=== PATIENT | female | born 1950 | race Caucasian/White ===

== ENCOUNTER 2016-06-28 22:43 | Observation (INO) | payer MEDICARE, OTHER ==
[~2016-06-28] VITALS: Ht 165.1 cm; Wt 86.2 kg
[2016-06-28 23:01] LABS: BASO # 0.1 x10^3/uL (0.0-0.2); BASO % 1 % (0-3); EOS % 1 % (0-3); HEMATOCRIT 41.7 % (36.0-47.0); HEMOGLOBIN 13.9 g/dL (12.0-15.5); LYMPH # 2.1 x10^3/uL (1.0-4.8); LYMPH % 21 % (24-48); MEAN CORPUSCULAR HEMOGLOBIN 33 pg (25-35); MEAN CORPUSCULAR HGB CONC 33 g/dL (31-37); MEAN CORPUSCULAR VOLUME 100 fL (79-100); MONO % 8 % (0-9); NEUT % 69 % (31-73); PLATELET COUNT 341 x10^3/uL (140-400); RED BLOOD COUNT 4.19 x10^6/uL (3.50-5.40); RED CELL DISTRIBUTION WIDTH 12.8 % (11.5-14.5); WHITE BLOOD COUNT 10.1 x10^3/uL (4.0-11.0)
[2016-06-28 23:11] LABS: CALCIUM 9.9 mg/dL (8.5-10.1); CREATININE 0.9 mg/dL (0.6-1.0); GFR 62.5; POTASSIUM 4.5 mmol/L (3.5-5.1)
--- NOTE | 2016-06-28 23:54 | PHYS DOC ---
Past Medical History Past Medical History: High Cholesterol, Hypertension Past Surgical History: , Hip Replacement, Tonsillectomy, Tubal ligation, Other Additional Past Surgical Histo: back sx, hand sx Alcohol Use: Occasionally Drug Use: None Adult General Chief Complaint Chief Complaint: CHEST PAIN HPI HPI 66-year-old female states she's had a week long history of left-sided chest pain. She states there are no concerning factors that can describe why she is having pain. She does believe she was lifting some boxes several days prior to the pain episode but states that that arm movement or breathing does not make the pain worse. She denies any shortness of breath. She states her last stress test approximately 5 years ago. Patient does state she has history of hypertension and takes medications for it. She is a nonsmoker and denies any other significant past medical history. Currently she rates her pain a 3 out of 10 and is in no acute distress. Review of Systems Review of Systems Constitutional: Denies fever or chills [] Eyes: Denies change in visual acuity, redness, or eye pain [] HENT: Denies nasal congestion or sore throat [] Respiratory: Denies cough or shortness of breath [] Cardiovascular: No additional information not addressed in HPI [] GI: Denies abdominal pain, nausea, vomiting, bloody stools or diarrhea [] : Denies dysuria or hematuria [] Musculoskeletal: Denies back pain or joint pain [] Integument: Denies rash or skin lesions [] Neurologic: Denies headache, focal weakness or sensory changes [] Endocrine: Denies polyuria or polydipsia [] Allergies Allergies Allergies Coded Allergies Type Severity Reaction Last Updated Verified No Known Drug Allergies 06/28/16 No Physical Exam Physical Exam Constitutional: Well developed, well nourished, no acute distress, non-toxic appearance. [] HENT: Normocephalic, atraumatic, bilateral external ears normal, oropharynx moist, no oral exudates, nose normal. [] Eyes: PERRLA, EOMI, conjunctiva normal, no discharge. [] Neck: Normal range of motion, no tenderness, supple, no stridor. [] Cardiovascular:Heart rate regular rhythm, no murmur [] Lungs & Thorax: Bilateral breath sounds clear to auscultation [] Abdomen: Bowel sounds normal, soft, no tenderness, no masses, no pulsatile masses. [] Skin: Warm, dry, no erythema, no rash. [] Back: No tenderness, no CVA tenderness. [] Extremities: No tenderness, no cyanosis, no clubbing, ROM intact, no edema. [] Neurologic: Alert and oriented X 3, normal motor function, normal sensory function, no focal deficits noted. [] Psychologic: Affect normal, judgement normal, mood normal. [] Current Patient Data Vital Signs Vital Signs Date Time Temp Pulse Resp B/P Pulse Ox O2 Delivery O2 Flow Rate FiO2 06/28/16 22:54 97.3 79 18 163/79 97 Room Air 97.3 Lab Values Laboratory Tests Test 06/28/16 22:54 White Blood Count 10.1x10^3/uL (4.0-11.0) Red Blood Count 4.19x10^6/uL (3.50-5.40) Hemoglobin 13.9g/dL (12.0-15.5) Hematocrit 41.7% (36.0-47.0) Mean Corpuscular Volume 100fL (79-100) Mean Corpuscular Hemoglobin 33pg (25-35) Mean Corpuscular Hemoglobin Concent 33g/dL (31-37) Red Cell Distribution Width 12.8% (11.5-14.5) Platelet Count 341x10^3/uL (140-400) Neutrophils (%) (Auto) 69% (31-73) Lymphocytes (%) (Auto) 21% (24-48) L Monocytes (%) (Auto) 8% (0-9) Eosinophils (%) (Auto) 1% (0-3) Basophils (%) (Auto) 1% (0-3) Neutrophils # (Auto) 7.0x10^3uL (1.8-7.7) Lymphocytes # (Auto) 2.1x10^3/uL (1.0-4.8) Monocytes # (Auto) 0.8x10^3/uL (0.0-1.1) Eosinophils # (Auto) 0.1x10^3/uL (0.0-0.7) Basophils # (Auto) 0.1x10^3/uL (0.0-0.2) Sodium Level 143mmol/L (136-145) Potassium Level 4.5mmol/L (3.5-5.1) Chloride Level 105mmol/L (98-107) Carbon Dioxide Level 31mmol/L (21-32) Anion Gap 7 (6-14) Blood Urea Nitrogen 26mg/dL (7-20) H Creatinine 0.9mg/dL (0.6-1.0) Estimated GFR (Cockcroft-Gault) 62.5 Glucose Level 121mg/dL (70-99) H Calcium Level 9.9mg/dL (8.5-10.1) Troponin I Quantitative < 0.017ng/mL (0.000-0.055) Laboratory Tests 06/28/16 22:54 Laboratory Tests 06/28/16 22:54 EKG EKG EKG as interpreted by me shows a sinus rhythm with rate of 68 bpm. There are no obvious signs of ischemia on this EKG. Intervals are normal. This EKG does not meet STEMI criteria. Radiology/Procedures Radiology/Procedures One view of the chest as interpreted by me does not reveal an acute cardiopulmonary process. Course & Med Decision Making Course & Med Decision Making Pertinent Labs and Imaging studies reviewed. (See chart for details) 66-year-old female who's having continued mild upper chest pain had a workup is essentially unremarkable. Pain seems fairly atypical for viscous skeletal pain and it is not reproducible my exam. For this reason, I will be admitting her to the hospital for further observation for her chest pain area I'll discuss the need for admission with the hospitalist, Dr. Whaley, and a cardiology consult will be placed. Dragon Disclaimer Dragon Disclaimer This electronic medical record was generated, in whole or in part, using a voice recognition dictation system. Departure Departure Impression: Primary Impression: Chest pain Disposition: 09 ADMITTED INPATIENT Admitting Physician: Other Condition: STABLE Referrals: MONISHA JASSO (PCP) YANET FLORES DO Jun 28, 2016 23:53
--- NOTE | 2016-06-29 00:31 | ACF ---
Admission Forms Criteria CHEST PAIN Clinical Indications for Admission to Inpatient Care (Place 'X' for any and all applicable criteria): Admission is indicated for chest pain and ANY ONE of the following(1)(2)(3)(4)(5 ): [ ]I. Angina with acute coronary syndrome (Also use Myocardial Infarction or Angina guideline) [ ]II. Hemodynamic instability [ ]III. Angina needing acute intervention as indicated by ALL of the following( 11)(12): [ ]a) Unstable angina is present as indicated by angina that is ANY ONE of the following: [ ]i) New onset [ ]ii) Nocturnal [ ]iii) Prolonged at rest [ ]iv) Progressive [ ]b) Angina warrants acute intervention as indicated by ANY ONE of the following: [ ]i) Recurrent angina (e.g, not responding as previously to treatment) [ ]ii) Angina at rest or with low-level activities despite initial medical therapy [ ]iii) New or presumably new ST-segment depression on ECG [ ]iv) Signs or symptoms of heart failure (eg, dyspnea, pulmonary edema) [ ]v) New or worsening mitral regurgitation [ ]vi) Hemodynamic instability [ ]vii) Dangerous arrhythmia (eg, sustained ventricular tachycardia) [ ]viii) History of percutaneous coronary intervention within 6 months [ ]ix) History of coronary artery bypass graft surgery [ ]x) SUZANNE risk score of 2 or greater[A] [ ]xi) History of Diabetes(14) [ ]xii) High-risk cardiac ischemia findings on noninvasive testing (e.g, echocardiogram, treadmill testing, nuclear scan) [ ]xiii) Chronic renal insufficiency (ie, estimated GFR less than 60 mL/min/1.732m) [ ]xiv) Left ventricular ejection fraction less than 40% [ ]IV. Evidence of [place] (eg, cardiac biomarkers positive, ST-segment elevation on ECG) also use Myocardial Infarction Criteria Form. [ ]V. Pulmonary edema [ ]. Respiratory distress [ ]VII. Chest pain indicative of serious diagnosis other than coronary artery disease (eg, aortic dissection) [ ]VIII. Contraindications and/or Inappropriate clinical situations for Observational Care in patients with Chest Pain, when ANY ONE of the following is required: [ ]a) Patient with risk factor for pulmonary embolism, acute coronary syndrome and myocardial infarction (18) [ ]b) Patient with Pulmonary embolism require an average LOS of 4.3 days, therefore emergency department observation management is inappropriate 18,23 [ ]c) Painful condition/s in the elderly, have the highest rate of recidivism after emergency department observation management (10.8%) 20,21,22 [ ]d) Elevated cardiac biomarker requires intensive and exhaustive care (19) [X]IX. General contraindications and/or Inappropriate clinical situations for Observational Care in patients with Chest Pain, when ANY ONE of the following is required: [X]a) Prediction of prolongation of LOS based on ANY ONE of the following may be considered as a contraindication for observational care 2, 3, 4, 5, 6, 7, 8, 9, 10, 11 [X]i) Age > 65 yrs. [ ]ii) Patient arriving by ambulance [ ]iii) Patient with high acuity [ ]iv) Patient requiring vital sign monitoring [ ]v) Patient on IV medication [ ]b) Systolic blood pressures 180mmHg 3,12 [ ]c) Patient with altered mental status including delirium and other alteration of consciousness, (3) [ ]d) Patient whose discharge disposition will be to a long-term home or rehabilitation home should not be managed in Emergency Department Observation Unit. CMS rule requires 3 days hospital stay before such placement. 3,13 [ ]e) Patient with failure to thrive due to broad array of etiologies 3,16,17 [ ]f) Inability to ambulate 3,14 Extended stay beyond goal length of stay may be needed for (1)(28): [ ]a) Specific condition diagnosed after evaluation (eg, pulmonary embolism, aortic dissection) [ ]b) Unstable angina [ ]c) Continued suspicion of acute coronary syndrome with inability to complete needed cardiac evaluation (eg, patient clinically unable to undergo stress testing) [ ]d) Myocardial infarction (Contents from ANGINA and CHEST PAIN clinical indications for admission to inpatient care have been integrated in this form) The original [facility] content created by [employer] has been revised. The portions of the content which have been revised are identified through the use of italic text or in bold, and [facility] has neither reviewed nor approved the modified material. All other unmodified content is copyright [facility]. Please see references footnoted in the original [facility] edition 2016 Admission Criteria Met?: Yes ALEJANDRO LOPEZ Jun 29, 2016 00:31
[2016-06-29] MEDS ORDERED: NITROGLYCERIN SUBLINGUAL 0.4 MG BOTTLE OF 25. SL PRN (00:45)
[2016-06-29] MEDS ORDERED: TELM40TA4 PO (02:57)
[2016-06-29] MEDS ORDERED: SIMV40TA3 PO (02:57)
[2016-06-29] MEDS ORDERED: GABA-586 PO (02:57)
[2016-06-29] MEDS ORDERED: NAPR500T3 PO (02:57)
[2016-06-29 03:11] VITALS: BP 131/59
--- NOTE | 2016-06-29 06:22 | EKG ---
[facility] [address] [place] [address] Test Date: 2016-06-28 Test Time: 22:51:11 [facility] Department: Room: 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 MISSING LEAD V 4 OTHERWISE NORMAL EKG. Electronically Signed On 06-30-2016 21:48:28 CDT by Barb Romero
[2016-06-29 07:00] VITALS: BP 123/89
--- NOTE | 2016-06-29 07:53 | RAD ---
Portable chest, 06/28/2016: History: Chest pain Comparison is made to a study from 11/11/2010. The heart size and pulmonary vascularity are normal. No pulmonary infiltrates are seen. There is no evidence of pleural fluid. IMPRESSION: No acute cardiopulmonary abnormality is detected.
[2016-06-29 08:51] VITALS: BP 123/59
[2016-06-29] MEDS ORDERED: MULT-246 PO (09:13)
--- NOTE | 2016-06-29 10:10 | PDOC2 ---
COURTNEY RIVERA FINE [employer]S MODEL 06/29/16 1010: CARDIAC CONSULT DATE OF CONSULT Date of Consult DATE: 06/29/16 TIME: 10:06 REASON FOR CONSULT Reason for Consult: Chest Pain REFERRING PHYSICIAN Referring Physician: Dr. Schaeffer SOURCE Source: Chart review, Patient HISTORY OF PRESENT ILLNESS HISTORY OF PRESENT ILLNESS This is a 66 yo female who presented with complaints of chest pain. Patient reports moving boxes 06/18/16. Developed pain in the left chest couple of days later; has been lingering on. Reports pain as dull. Non-radiating. Seems to be relief/improved with belching. Worse after eating; feels like food is getting stuck. Generally is gone in the morning, but returns throughout the day. Walks daily on the treadmill for 20-30 mins; seems to improve pain. Last night, felt pain between her shoulder blades while cooking dinner. Has chronic lower-back pain. This was very different so she thought she should come in for evaluation. Denies any associated dizziness, diaphoresis, palpitations, SOA, STAPLETON, or nausea/ vomiting. Thinks this may be GERD related as she has had 30lb weight gain of the last 2 years due to decreased activity with chronic pain. Was recently started on gabapentin, which has significantly improved her pain. Has began to be more active in the last 6 weeks. Patient had breakfast with caffeine this am. PAST MEDICAL HISTORY Cardiovascular: HTN, Hyperlipidemia Pulmonary: No pertinent hx GI: No pertinent hx Heme/Onc: No pertinent hx Hepatobiliary: No pertinent hx Psych: No pertinent hx Musculoskeletal: Osteoarthritis Rheumatologic: No pertinent hx Infectious disease: No pertinent hx ENT: No pertinent hx Renal/: No pertinent hx Endocrine: No pertinent hx Dermatology: No pertinent hx PAST SURGICAL HISTORY Past Surgical History: Tubal Ligation, Tonsillectomy, Other (back sx, left hip sx, right hand sx) FAMILY HISTORY Family History: Hypertension SOCIAL HISTORY Smoke: No ALCOHOL: none Drugs: None Lives: with Family ALLERGIES ALLERGIES: Coded Allergies: No Known Drug Allergies (Unverified , 06/28/16) ROS Review of System 14 point ROS conducted with pertinent positives noted above in HPI PHYSICAL EXAM General: Alert, Oriented X3, Cooperative, No acute distress HEENT: Atraumatic, Mucous membr. moist/pink Lungs: Clear to auscultation, Normal air movement Heart: Regular rate, Normal S1, Normal S2 Abdomen: Soft, No tenderness Extremities: No edema, Normal pulses Skin: No significant lesion Neuro: Normal speech, Sensation intact Psych/Mental Status: Mental status NL, Mood NL MUSCULOSKELETAL: Osteoarthritic changes both hands VITALS VITALS Vital Signs Date Time Temp Pulse Resp B/P Pulse Ox O2 Delivery O2 Flow Rate FiO2 06/29/16 08:51 98.0 64 16 123/59 97 Room Air 98.0 LABS Lab: Laboratory Tests Test 06/28/16 22:54 06/29/16 05:40 White Blood Count 10.1x10^3/uL (4.0-11.0) Red Blood Count 4.19x10^6/uL (3.50-5.40) Hemoglobin 13.9g/dL (12.0-15.5) Hematocrit 41.7% (36.0-47.0) Mean Corpuscular Volume 100fL (79-100) Mean Corpuscular Hemoglobin 33pg (25-35) Mean Corpuscular Hemoglobin Concent 33g/dL (31-37) Red Cell Distribution Width 12.8% (11.5-14.5) Platelet Count 341x10^3/uL (140-400) Neutrophils (%) (Auto) 69% (31-73) Lymphocytes (%) (Auto) 21% (24-48) Monocytes (%) (Auto) 8% (0-9) Eosinophils (%) (Auto) 1% (0-3) Basophils (%) (Auto) 1% (0-3) Neutrophils # (Auto) 7.0x10^3uL (1.8-7.7) Lymphocytes # (Auto) 2.1x10^3/uL (1.0-4.8) Monocytes # (Auto) 0.8x10^3/uL (0.0-1.1) Eosinophils # (Auto) 0.1x10^3/uL (0.0-0.7) Basophils # (Auto) 0.1x10^3/uL (0.0-0.2) Sodium Level 143mmol/L (136-145) Potassium Level 4.5mmol/L (3.5-5.1) Chloride Level 105mmol/L (98-107) Carbon Dioxide Level 31mmol/L (21-32) Anion Gap 7 (6-14) Blood Urea Nitrogen 26mg/dL (7-20) Creatinine 0.9mg/dL (0.6-1.0) Estimated GFR (Cockcroft-Gault) 62.5 Glucose Level 121mg/dL (70-99) Calcium Level 9.9mg/dL (8.5-10.1) Troponin I Quantitative < 0.017ng/mL (0.000-0.055) < 0.017ng/mL (0.000-0.055) ASSESSMENT/PLAN ASSESSMENT/PLAN 1. Chest pain, atypical 2. Hypertension 3. Hyperlipidemia 4. ? GERD Recommendations Check lipids Enzymes negative- AMI ruled out Will obtain echo to assess LV function/ presence of WMA Pain possible GI related as it is affected by eating/belching. PPI Could consider outpatient MPI Problems: NIC HIDALGO MD 06/29/16 2233: CARDIAC CONSULT ALLERGIES ALLERGIES: Coded Allergies: No Known Drug Allergies (Unverified , 06/28/16) ASSESSMENT/PLAN ASSESSMENT/PLAN Pt. seen and examined. 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 66 y.o woman presenting with atypical chest pain normal cardiac exam. labs reviewed. echo wnl low risk for coronary disease based on presentation and testing ok to dc and will f/u on an outpt basis for eval. If she has any sx despite tx of GERD, then can pursue ischemic testing. Problems: COURTNEY RIVERA APRN Jun 29, 2016 10:10 NIC HIDALGO MD Jun 29, 2016 22:33
[2016-06-29 11:00] VITALS: BP 146/83
[2016-06-29 13:01] LABS: CHOLESTEROL/HDL RATIO 3.6
--- NOTE | 2016-06-29 17:17 | SSS ---
ADMIT DATE: 06/29/2016 CHIEF COMPLAINT: Shortness of breath. HISTORY OF PRESENT ILLNESS: The patient is a pleasant middle-aged white female who looks younger than her stated age. She is apparently 66, but looks to be in her 40s, she presents with chest pain. She has had an evaluation before for chest pain. She rates her symptoms 7/10, that has been coming on for a few days. She was admitted overnight for observation. At this point, she saw the nurse practitioner for Cardiology. They are planning to do an echo. If it is normal, they plan to discharge. We are going to have close outpatient followup for outpatient stress test. PAST MEDICAL HISTORY: Previous coronary workup, although apparently was negative, arthritis, neuropathy, hyperlipidemia, hypertension. ALLERGIES: None. FAMILY HISTORY: Coronary artery disease. SOCIAL HISTORY: She does not drink, smoke or take drugs. MEDICATIONS: Reviewed, please refer to the MRAD. REVIEW OF SYSTEMS: GENERAL: No history of weight change, weakness or fevers. SKIN: No bruising, hair changes or rashes. EYES: No blurred, double or loss of vision. NOSE AND THROAT: No history of nosebleeds, hoarseness or sore throat. HEART: No history of palpitations, chest pain or shortness of breath on exertion. LUNGS: Denies cough, hemoptysis, wheezing or shortness of breath. GASTROINTESTINAL: Denies changes in appetite, nausea, vomiting, diarrhea or constipation. GENITOURINARY: No history of frequency, urgency, hesitancy or nocturia. NEUROLOGIC: Denies history of numbness, tingling, tremor or weakness. PSYCHIATRIC: No history of panic, anxiety or depression. ENDOCRINE: No history of heat or cold intolerance, polyuria or polydipsia. EXTREMITIES: Denies muscle weakness, joint pain, pain on walking or stiffness. PHYSICAL EXAMINATION: VITAL SIGNS: Temperature afebrile, pulse 68, respirations 18, blood pressure 144/90. GENERAL: She is alert, cooperative, requesting discharge. HEART: Normal S1, S2. LUNGS: Clear. ABDOMEN: Soft. EXTREMITIES: No edema. SKIN: No rashes. PSYCHIATRIC: She is stable. LABORATORY DATA: Troponin is 0. EKG shows sinus rhythm. ASSESSMENT AND PLAN: Chest pain, suspect gastroesophageal reflux disease. The patient seems stable. If her echo is negative, we plan to discharge with outpatient stress. DISPOSITION: Home. ACTIVITY: As tolerated. DIET: Low sodium. MEDICATIONS: Please see the MRAD. Total time 32 minutes. ANGY PACK DO DR: SHANELL/maurilio JOB#: [id number] / [id number]
--- NOTE | 2016-06-29 19:28 | CARD ---
APPROVED REPORT EXAM: Two-dimensional and M-mode echocardiogram with Doppler and color Doppler. Other Information Quality : Average Rhythm : NSR INDICATION Chest Pain 2D DIMENSIONS RVDd2.9 (2.9-3.5cm)Left Atrium(2D)3.7 (1.6-4.0cm) IVSd1.0 (0.7-1.1cm)Aortic Root(2D)2.8 (2.0-3.7cm) LVDd4.6 (3.9-5.9cm)LVOT Diameter2.2 (1.8-2.4cm) PWd1.0 (0.7-1.1cm)LVDs2.8 (2.5-4.0cm) FS (%) 39.3 %SV69.3 ml LVEF(%)69.8 (>50%) Aortic Valve AoV Peak Phil.89.2cm/sAoV VTI19.0cm AO Peak GR.3.2mmHgLVOT Peak Phil.86.8cm/s LVOT VTI 26.99cmAO Mean GR.2mmHg MISTI (VMAX)3.63cm2 Mitral Valve MV E Enyeytlh19.4cm/sMV DECEL [id number] MV A Negaupzj78.1cm/sMV E Mean Gr.1mmHg MV LRV21nzV/A Ratio0.8 MV A [id number] (PHT)2.62cm2 TDI E/Lateral E'6.9E/Medial E'7.0 Pulmonary Valve PV Peak Nbdeioqa20.1cm/sPV Peak Grad.3mmHg RVOT VTI14.3cm Tricuspid Valve TR P. Jnmfjkri045qe/sRAP FIJTFLKL7uqRt TR Peak Gr.90ysTjVTOR04rkBd Pulmonary Vein S1 Idqclrvd32.7cm/sD2 Segawaxm70.8cm/s LEFT VENTRICLE The left ventricle is normal size. There is normal left ventricular wall thickness. Left ventricle sy stolic function is normal. The Ejection Fraction is 65-70%. There is normal LV segmental wall motion. Tissue Doppler imaging reveals mild left ventricular diastolic dysfunction. RIGHT VENTRICLE The right ventricle is normal size. The right ventricular systolic function is normal. ATRIA The left atrium size is normal. The right atrium size is normal. The interatrial septum is intact wit h no evidence for an atrial septal defect or patent foramen ovale as noted on 2-D or Doppler imaging. AORTIC VALVE The aortic valve is normal in structure and function. The aortic valve is trileaflet. Doppler and Col or Flow revealed no significant aortic regurgitation. There is no significant aortic valvular stenosi s. MITRAL VALVE Mitral annular calcification is mild. There is no mitral valve stenosis. Doppler and Color Flow revea led no mitral valve regurgitation noted. TRICUSPID VALVE The tricuspid valve is normal in structure and function. Doppler and Color Flow revealed trace to mil d tricuspid regurgitation. The PA pressure was estimated at 27 mmHg. There is no tricuspid valve sten osis. PULMONIC VALVE The pulmonic valve is not well visualized. Doppler and Color Flow revealed no pulmonic valvular regur gitation. There is no pulmonic valvular stenosis. GREAT VESSELS The aortic root is normal in size. Normal pulmonary venous flow (Doppler). The IVC is normal in size and collapses >50% with inspiration. PERICARDIAL EFFUSION There is no evidence of significant pericardial effusion. Critical Notification Critical Value: No <Conclusion> Left ventricle systolic function is normal. The Ejection Fraction is 65-70%. There is normal LV segmental wall motion.
== END 2016-06-29 18:08 | disposition home or self-care (01) ==
LOC: ER 22:43 → 5 NORTH 23:50
PROVIDERS: ADMIT Internal Medicine Hematology & Oncology; ATTEND Internal Medicine Hematology & Oncology
DX: R07.89 Other chest pain (principal); M19.90 Unspecified osteoarthritis, unspecified site; G62.9 Polyneuropathy, unspecified; E78.5 Hyperlipidemia, unspecified; E78.00 Pure hypercholesterolemia, unspecified; I10 Essential (primary) hypertension; G89.29 Other chronic pain; M54.5 Low back pain; Z96.649 Presence of unspecified artificial hip joint; Z82.49 Family history of ischemic heart disease and other diseases of the circulatory system
CPT/HCPCS: 36415; 71010; 80048; 80061; 84484; 85027; 93005; 93306; 99285; G0378; G0379

== ENCOUNTER → 2017-02-17 | Outpatient (CLI) | payer MEDICARE, OTHER ==
[~2017-02-17] MED LIST: GABA-586 PO; MULT-246 PO; NAPR500T4 PO; SIMV40TA3 PO; TELM40TA4 PO
[2017-02-17 12:00] LABS: BASO # 0.1 x10^3/uL (0.0-0.2); BASO % 1 % (0-3); EOS % 2 % (0-3); HEMATOCRIT 43.4 % (36.0-47.0); HEMOGLOBIN 14.9 g/dL (12.0-15.5); LYMPH # 1.3 x10^3/uL (1.0-4.8); LYMPH % 17 % (24-48); MEAN CORPUSCULAR HEMOGLOBIN 34 pg (25-35); MEAN CORPUSCULAR HGB CONC 34 g/dL (31-37); MEAN CORPUSCULAR VOLUME 98 fL (79-100); MONO % 9 % (0-9); NEUT % 71 % (31-73); PLATELET COUNT 257 x10^3/uL (140-400); RED BLOOD COUNT 4.42 x10^6/uL (3.50-5.40); RED CELL DISTRIBUTION WIDTH 12.2 % (11.5-14.5); WHITE BLOOD COUNT 7.3 x10^3/uL (4.0-11.0)
[2017-02-17 12:24] LABS: FREE T4 1.06 ng/dL (0.76-1.46)
[2017-02-17 12:28] LABS: ALBUMIN 4.3 g/dL (3.4-5.0); ALBUMIN/GLOBULIN RATIO 1.2 (1.0-1.7); CALCIUM 9.7 mg/dL (8.5-10.1); CREATININE 0.9 mg/dL (0.6-1.0); GFR 62.5; POTASSIUM 4.4 mmol/L (3.5-5.1); TOTAL BILIRUBIN 0.6 mg/dL (0.2-1.0); TOTAL PROTEIN 7.8 g/dL (6.4-8.2)
[2017-02-18 01:14] LABS: VITAMIN D25(OH)TOTAL 31.8 ng/mL (30.0-100.0)
== END | disposition home or self-care (01) ==
LOC: LAB 11:32
DX: L65.0 Telogen effluvium (principal)
CPT/HCPCS: 36415; 80053; 82306; 82728; 83540; 84439; 84443; 85025